=== PATIENT | female | born 2000 | race Caucasian/White ===

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

== ENCOUNTER 2023-03-07 17:46 | Emergency (ER) | payer OTHER, SELFPAY ==
[2023-03-07 17:48] VITALS: BP 119/81; PULSE 99; RESP 18; TEMP 36.4; O2SAT 97; BMI 25.7
[2023-03-07 21:29] LABS: Absolute Lymphocyte Count 1.84 X10^3/uL (0.83-4.51); Absolute Neutrophil Count 4.1 X10^3/uL (2.0-7.7); Basophil# 0.05 X10^3/uL; Basophil% 0.7 % (0-1); Eosinophil# 0.08 X10^3/uL; Eosinophils% 1.2 % (0-5); Hematocrit 39.1 % (37-47); Hemoglobin 12.8 g/dL (12.0-15.0); Lymphocyte # 1.84 X10^3/ul (0.83-4.51); Lymphocyte % 26.5 % (19-41); Mean Corp Hgb Conc 32.7 g/dL (32-36); Mean Corpuscular Hgb 28.4 pg (27.0-32.0); Mean Corpuscular Volume 86.7 fL (81-99); Mean Platelet Vol. 9.3 fl (6.2-12.0); Monocyte# 0.84 X10^3/uL; Monocyte% 12.1 % (0-10); NRBC Flagged by Analyzer 0 % (0-5); Neutrophil # 4.12 X10^3/uL (2.7-7.7); Neutrophil % 59.4 % (47-70); Platelet Count 320 K/mm3 (150-450); RBC Distribution Width CV 12.1 % (11.6-14.6); RBC Distribution Width SD 38.5 fl (35.1-43.9); Red Blood Count 4.51 M/mm3 (4.2-5.4); White Blood Count 6.9 K/mm3 (4.4-11.0)
[2023-03-07 21:41] LABS: Bacteria 0 SEEN /hpf (None Seen); Mucous, Urine 0 SEEN /hpf (<or=2+); Red Blood Cells-Urine 0 SEEN /hpf (0-5)
[2023-03-07 21:48] LABS: Color, Urine Yellow (Yellow); Glucose, Dipstick Normal (Normal); Ketone-Dipstick Negative (Negative); Leukocyte Esterase-Dipstick 25 /ul (Negative); Nitrite-Dipstick Negative (Negative); Occult Blood-Urine 250 /ul (Negative); Protein-Dipstick 15 mg/dl (Negative); Specific Gravity, Urine 1.015 (1.002-1.030); Urine Bilirubin Dipstick Negative (Negative); Urine Clarity Clear (Clear); Urine Urobilinogen Normal (Normal)
[2023-03-07 21:51] LABS: Internal QC Validated? YES +Cl - CLEAR BKGD; Pregnancy, Serum, hCG Quali. NEGATIVE Negative
[2023-03-07 21:56] LABS: Anion Gap 3 (5-15); BUN 5 mg/dL (7-18); BUN/Creat Ratio 5.7 RATIO (10-20); Calcium,Total 9.3 mg/dL (8.5-10.1); Chloride 104 mmol/L (98-107); Creatinine, Serum 0.88 mg/dL (0.55-1.02); EST Glomerular Filtration Rate 85 mL/min (>60); Est Glom Filt Rate - Afr Amer 103 mL/min (>60); Estimated Creatinine Clearance 98.34 ml/min; Glucose 96 mg/dL (74-106); Potassium 3.8 mmol/L (3.5-5.1); Sodium Level 137 mmol/L (136-145)
[2023-03-07 22:12] LABS: Squamous Epithelial Cells - UA 0-5 SEEN /hpf (5-10); White Blood Cells 0-5 SEEN /hpf (0-5)
[2023-03-07 22:30] VITALS: BP 118/72; PULSE 64; RESP 15; O2SAT 98
--- NOTE | 2023-03-07 23:21 | ED.VIS.FEGU ---
HPI HPI - Female History of Present Illness Chief Complaint: Vag Bleeding Detail of Chief Complaint: Abnormal vaginal bleeding Informant: patient Pain Pain: Negative for Pelvic Pain, Vulvar Pain or Vaginal Pain Bleeding Issue: Positive for Vaginal bleeding; Negative for Passing clots or Passing tissue Onset: Yesterday Context: Sudden Onset Timing: Continuous Current Severity: Similar to period Maximum Severity: Similar to period Associated Symptoms Associated Symptoms: Negative for Dysuria, Frequency, Urgency, Hematuria, Missed Period or Irregular Period Test: Negative Sexually: Positive for Active Control: BCP (Been on control for 7 years. Patient does not take her medicine at the same time, however.) P: 0 Narrative Narrative: Is a 22-year-old female who presents because of abnormal vaginal bleeding. She states she had her menses 2 weeks ago. Her menses was normal for her as far as blood flow, color flow, amount of flow and timing. She presents because she began to bleed again. She is on control pill. Her last sexual encounter was 1 week ago. She does vary the time she takes her control pills up to 1.5 hours. She has not missed any doses. She denies abdominal or pelvic pain. She does not bruise easily. 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 Patient denies orthostatic symptoms. Patient denies dyspnea or dyspnea on exertion. Prior similar symptoms: No Recent Illness/Hospitalization: No PFSH PFSH Home Medications ondansetron 4 mg disintegrating tablet 8 mg (2 x 4 mg) PO Q8H PRN PRN Nausea #6 tabs 07/03/20 [Rx Last Taken Unknown] Allergy/AdvReac Type Severity Reaction Status Date / Time cefdinir [From Omnicef] Allergy Hives Verified 03/07/23 17:48 ibuprofen Allergy Hives Verified 03/07/23 17:48 Social History (Updated 03/07/23 @ 23:[address] Derick Duvall MD) household members: other details: College [place] student. Smoking Status: Never smoker ROS ROS ED Constitutional Constitutional ED: Denies chills or fever(s) Cardiovascular Cardiovascular: Reports other; Denies chest pain or palpitations Respiratory/Chest Respiratory/Chest: Reports other Details: Breast tenderness, denies ; Denies cough, dyspnea or dyspnea on exertion Gastrointestinal Gastrointestinal: Denies abdominal pain, nausea or vomiting Genitourinary Genitourinary ED: Denies dysuria, hematuria or urinary frequency Musculoskeletal Musculoskeletal: Denies arthralgias, myalgias or neck pain Integumentary Denies rash Hematologic/Lymphatic Hematologic/Lymphatic: Denies easy bleeding or easy bruising EXAM Physical Exam Const Vital Signs: 03/07/23 17:48 03/07/23 22:30 Temperature 97.6 F L Temperature Source Temporal Pulse Rate 99 64 Respiratory Rate 18 15 Blood Pressure 119/81 H 118/72 Blood Pressure Mean 93 87 Pulse Ox 97 98 Oxygen Delivery Method Room Air Positive well nourished and well developed General Appearance ED: well developed and NAD HEENT Reports moist mucous membranes HEENT Narrative: Head is atraumatic and normocephalic. External ears normal. Eyes PERRL and EOMs intact bilaterally General Eye ED: Negative for pale conjunctiva or scleral icterus Neck no lymphadenopathy, supple and no JVD Resp normal respiratory effort and clear to auscultation bilaterally Cardio regular rate, regular rhythm, S1 normal heart sound, no murmurs and no JVD GI normal to inspection, nondistended, normoactive bowel sounds, soft to palpation, non-tender, non-distended and no masses Narrative: Terminal genitalia normal. Vaginal mucosa and cervical mucosa normal. External os is oblong. Negative Osorio's sign. There is scant amount of blood noted in the vaginal vault. Bimanual exam is unremarkable. Uterus is normal size. Uterus is nontender. There is no adnexal masses or tenderness noted. There is no cervical motion tenderness. There is no discomfort with pressure against the bladder. Back/Spine no CVA tenderness Extremity normal to inspection and full ROM Neuro oriented x3, CN's II-XII intact bilaterally and no sensory deficits noted Psych mental status grossly normal Skin no rashes or lesions noted and no wounds MDM MDM MDM Narrative Medical decision making narrative: Differential diagnosis would be , hormonal imbalance due to the fact that she is taking her control pills irregularly, cervical polyp, cervical lesion, vaginal lesion, or dysfunctional uterine bleeding. CBC was ordered and is unremarkable. Urinalysis is negative. Serum test is negative. Lab Data Attestation: I reviewed the patient's lab results. Labs: Laboratory Results - last 24 hr 03/07/23 21:14 WBC 6.9 RBC 4.51 Hgb 12.8 Hct 39.1 MCV 86.7 MCH 28.4 MCHC 32.7 RDW Std Deviation 38.5 RDW Coeff of Kuldeep 12.1 Plt Count 320 MPV 9.3 Immature Gran % (Auto) 0.100 Neut % (Auto) 59.4 Lymph % (Auto) 26.5 Gilchrist % (Auto) 12.1 H Eos % (Auto) 1.2 Baso % (Auto) 0.7 Absolute Neuts (auto) 4.1 Absolute Lymphs (auto) 1.84 Nucleated RBC % 0 Sodium 137 Potassium 3.8 Chloride 104 Carbon Dioxide 30.0 Anion Gap 3 L BUN 5 L Creatinine 0.88 Estim Creat Clear Calc 98.34 Est GFR (MDRD) Af Amer 103 Est GFR (MDRD) Non-Af 85 BUN/Creatinine Ratio 5.7 L Glucose 96 Calcium 9.3 Serum , Qual NEGATIVE Urine Color Yellow Urine Clarity Clear Urine pH 6.0 Ur Specific [place] 1.015 Urine Protein 15 H Urine Glucose (UA) Normal Urine Ketones Negative Urine Occult Blood 250 H Urine Nitrite Negative Urine Bilirubin Negative Urine Urobilinogen Normal Ur Leukocyte Esterase 25 H Urine RBC 0 SEEN Urine WBC 0-5 SEEN Ur Squamous Epith Cells 0-5 SEEN Urine Bacteria 0 SEEN Urine Mucus 0 SEEN Discharge Plan Triage Chief Complaint: Vag Bleeding ED Provider: Derick Duvall Dx/Rx/DC Orders Clinical Impression: Abnormal vaginal bleeding Instructions: ED Dysfunctional Uterine Bleeding Prescriptions: No Action ondansetron 4 MG tablet 8 mg PO Q8H PRN PRN (Reason: Nausea) Qty: 6 0RF Primary Care Provider: CRYSTAL SIDDIQUI Referrals: CRYSTAL SIDDIQUI [Other] - 10-14 Days if not better Activity Restrictions/Additional Instructions: 1. You need to take your control pills at the same time every day. Disposition Disposition: Home, Self Care
== END 2023-03-07 23:34 | disposition home or self-care (01) ==
PROVIDERS: Emergency Provider Emergency Medicine; Visit Provider Emergency Medicine
DX: N93.9 Abnormal uterine and vaginal bleeding, unspecified (principal)
CPT/HCPCS: 80048; 81001; 84703; 85025; 99283; A4216